=== PATIENT | male | born 1930 | race Caucasian/White ===

== ENCOUNTER → 2020-07-17 | Outpatient (CLI) | payer MEDICARE, OTHER ==
[~2020-07-17] MED LIST: AMBIEN CR 12.12.5 MG PO; CARDIZEM CD180 MG PO; COUMADIN 5MG5 MG/TAB PO; K-DUR20 MEQ PO; LASIX 20MG TABL20 MG PO; LIPITOR20 MG PO; NORVASC 10MG10 MG PO; OMNICEF 300MG300 MG PO; PRINZIDE 12.5 M1 TAB PO; TYLENOL 325MG325 MG PO
== END ==
LOC: COL.VAS 07:43
DX: M79.89 Other specified soft tissue disorders (principal)

== ENCOUNTER → 2020-07-23 | Outpatient (CLI) | payer MEDICARE, OTHER | LOC: COL.RAD 07-19 11:00 | DX: I10 Essential (primary) hypertension (principal); M79.89 Other specified soft tissue disorders; R16.1 Splenomegaly, not elsewhere classified; K57.90 Diverticulosis of intestine, part unspecified, without perforation or abscess without bleeding; N40.0 Benign prostatic hyperplasia without lower urinary tract symptoms; R22.32 Localized swelling, mass and lump, left upper limb; F51.01 Primary insomnia; J90 Pleural effusion, not elsewhere classified; Z86.39 Personal history of other endocrine, nutritional and metabolic disease | CPT/HCPCS: Q9967 ==

== ENCOUNTER 2020-08-03 12:55 | Inpatient (IN) | payer MEDICARE, OTHER ==
[~2020-08-03] VITALS: Ht 182.9 cm; Wt 83.5 kg
[~2020-08-03 12:55] MED LIST changes: -AMBIEN CR 12.12.5 MG PO; -K-DUR20 MEQ PO; -LASIX 20MG TABL20 MG PO; -NORVASC 10MG10 MG PO; -OMNICEF 300MG300 MG PO; -TYLENOL 325MG325 MG PO
[2020-08-03 13:14] LABS: BASO # 0.1 (0.0-0.2); BASO % 1.1 % (0.0-2.0); EOS # 0.7 (0.0-0.7); GRAN # 6.7 (1.4-6.5); GRAN % 57.7 % (42.2-75.2); HEMOGLOBIN 14.2 g/dl (13.5-18.0); LYMPH # 3.1 (1.2-3.4); LYMPH % 26.3 % (20.0-51.0); MEAN CELL VOLUME 85 fl (80.0-100.0); MEAN CORPUSCULAR HEMOGLOBIN 28 pg (27.0-31.0); MEAN CORPUSCULAR HGB CONC 33 g/dl (33.0-37.0); MEAN PLATELET VOLUME 8.3 fl (7.4-10.4); MONO % 8.2 % (1.7-9.3); PLATELET COUNT 187 K/mm3 (130-400); RED BLOOD COUNT 5.04 M/mm3 (4.20-5.60); REDCELL DISTRIBUTION WIDTH-CV 17.3 % (11.5-14.5)
[2020-08-03 13:24] LABS: ALBUMIN 3.8 gm/dL (3.5-5.0); BILIRUBIN,TOTAL 1.7 mg/dL (0.0-1.0); CREATININE, serum 1.04 (0.66-1.25); POTASSIUM 3.3 mmol/L (3.4-5.0); TOTAL PROTEIN 6.6 gm/dL (6.4-8.2)
[2020-08-03 13:35] LABS: TROPONIN-I 0.02 ng/mL (0.000-0.035)
[2020-08-03 13:47] LABS: INR 1.1 (0.8-3.0); PROTHROMBIN TIME 12.5 SECONDS (9.7-12.8)
[2020-08-03 15:31] LABS: ARTERIAL BLD GAS O2 SATURATION 91.5 % (92-100); ARTERIAL BLD GAS TCO2 CT 20.6; ARTERIAL BLOOD GAS BASE EXCESS -2.9 (-2-2); ARTERIAL BLOOD GAS HCO3 19.7 meq/L (22-26); ARTERIAL BLOOD GAS PCO2 28.7 mmHg (35-45); ARTERIAL BLOOD GAS PO2 58.8 mmHg (80-100); ARTERIAL BLOOD GAS pH 7.46 (7.35-7.45)
[2020-08-03] MEDS ORDERED: NORVASC 10MG10 MG PO (16:48)
[2020-08-03] MEDS ORDERED: AMBIEN CR 12.12.5 MG PO (16:48)
[2020-08-03] MEDS ORDERED: LASIX 20MG TABL20 MG PO (16:48)
[2020-08-03] MEDS ORDERED: K-DUR20 MEQ PO (16:48)
--- NOTE | 2020-08-03 18:40 | NUR ---
Pt arrived to medical unit room 355 from ED at 1810. Accompanied by son. Pt very hard of hearing w/hearing aid to right ear, most of history obtained from pt's son. Admission assessment completed and med rec updated. Oriented pt to room. Denies pain, does report increased SOA after moving from stretcher to bed. Sats remain stable in mid 90s on 2 lpm NC. Denies needs. Call light in reach and bed alarm on.
--- NOTE | 2020-08-03 20:00 | NUR ---
Notified by tele of a six beat run of SVT with return to SR. VS stable-asymptomatic. Notified JESI Ramos-new orders received for EKG. Notified RT.
[2020-08-03 20:07] VITALS: BP 137/68; PULSE 85; TEMP 97.9
--- NOTE | 2020-08-03 21:49 | NUR ---
PATIENT STATED THAT HE DOES NOT USE A PAP DEVICE ANYMORE. HE DOES NOT WANT THE PAP DEVICE TO BE SET UP.
[2020-08-03 23:32] VITALS: BP 150/71; PULSE 77; TEMP 97.5
--- NOTE | 2020-08-04 01:31 | NUR ---
JESI Ramos notified of potassium level of 3.3. New orders received and initiated.
[2020-08-04 04:25] VITALS: BP 150/69; PULSE 75; TEMP 97.8
--- NOTE | 2020-08-04 05:30 | NUR ---
Pt rested off and on this shift. Has voided well this shift. Denied pain/nausea/shortness of breath. VS stable. Denies needs. Call light in reach. Will monitor.
[2020-08-04 07:14] LABS: BASO # 0.1 (0.0-0.2); BASO % 1.1 % (0.0-2.0); EOS # 0.7 (0.0-0.7); GRAN # 4.9 (1.4-6.5); GRAN % 60.1 % (42.2-75.2); HEMATOCRIT 40.8 % (42.0-52.0); HEMOGLOBIN 13.3 g/dl (13.5-18.0); LYMPH # 1.6 (1.2-3.4); MEAN CELL VOLUME 86 fl (80.0-100.0); MEAN CORPUSCULAR HEMOGLOBIN 28 pg (27.0-31.0); MEAN CORPUSCULAR HGB CONC 33 g/dl (33.0-37.0); MEAN PLATELET VOLUME 8.7 fl (7.4-10.4); MONO # 0.8 (0.1-0.6); MONO % 10.1 % (1.7-9.3); PLATELET COUNT 144 K/mm3 (130-400); RED BLOOD COUNT 4.72 M/mm3 (4.20-5.60); REDCELL DISTRIBUTION WIDTH-CV 17.1 % (11.5-14.5)
[2020-08-04 07:28] LABS: CALCIUM 8.5 mg/dL (8.4-10.2); CREATININE, serum 0.9 (0.66-1.25); POTASSIUM 3.1 mmol/L (3.4-5.0)
--- NOTE | 2020-08-04 07:40 | NUR ---
Shift assessment complete. Pt still reports occasional SOA w/ exertion. Sats mid 90s on 2 lpm NC. Lungs CTA. Heart RRR. A&Ox4. Denies pain or other needs. Call light in reach.
[2020-08-04 08:00] VITALS: BP 164/89; PULSE 93; TEMP 98.6
[2020-08-04 12:00] VITALS: BP 136/62; PULSE 115; TEMP 98
--- NOTE | 2020-08-04 15:28 | NUR ---
Maintenance Service Technician met with patient to discuss discharge planning. Patient states that he lives in [place]. Patient is unable to hear SW, despite SW raising her voice and standing close to patient. SW asked patient if she could call his son, Manuel (ph#[phone]) and patient nodded his head. SW contacted Manuel to complete intake. Patient lives in [place] and sees Dr. Schmidt for primary care. Patient obtains medications from [facility] with no difficulties. Manuel advised patient recently obtained a cane and walker due to increased weakness recently. Manuel advised patient is normally independent with ADLS however they have been exploring assisted living options. Manuel is interested in patient completing DPOA-HC while he is here. SW will continue to follow on this. SW reviewed PT recommendation for SNF vs Home Health. Manuel feels at this time, patient should not return home and would benefit from rehab. SW reviewed local SNF options and Manuel's preferences are 1) [facility] in [place] and 2) [facility]. SW faxed referrals to both facilities. Discharge Plan: Awaiting screens from [facility] and [facility].
--- NOTE | 2020-08-04 15:44 | NUR ---
Report given to Libby DOBBINS who will resume care at this time.
[2020-08-04 17:04] VITALS: BP 122/65; PULSE 106; TEMP 98.5
--- NOTE | 2020-08-04 17:57 | NUR ---
Report recieved from SHILPI Ricks. Patient repositioned, IV antibiotics started. patient denies any pain, discomfort, or further needs at this time. White board placed in room to help with communication. Will continue to monitor. Call light within reach. Fall precautions in place.
[2020-08-04 19:11] VITALS: BP 118/63; PULSE 90; TEMP 97.5
--- NOTE | 2020-08-04 19:40 | NUR ---
Report received, assumed care for substation operator. Assessment complete. A&Ox3-very hard of hearing even with hearing aids in. Denies pain/nausea/shortness of breath. VS remain stable. O2A@2L/NC. States he feels exhausted and would like his HS meds now to include Ambien. Given per request. INT to right AC flushes without difficulty. External male cath in place-clear yellow urine. Denies any other needs. Call light in reach/bed alarm on. Will monitor.
[2020-08-04 23:17] VITALS: BP 130/76; PULSE 74; TEMP 97.8
--- NOTE | 2020-08-05 00:30 | NUR ---
Resting eyes closed. NO s/s of pain/discomfort noted. External male cath with clear yellow urine. Will continue to monitor.
[2020-08-05 03:14] VITALS: BP 129/63; PULSE 74; TEMP 97.4
--- NOTE | 2020-08-05 04:22 | NUR ---
Rested better this shift boss compared to last. Slept better with ambien dose. Is very hard of hearing-yells out and does not use call light but is A&Ox3. Tele showing SR with occasional PVC/PAC. Right AC INT flushes without difficulty. Denies current needs. Call light in reach/bed alarm on. Will monitor.
[2020-08-05 06:31] LABS: BASO # 0.1 (0.0-0.2); BASO % 1.1 % (0.0-2.0); EOS # 0.9 (0.0-0.7); EOS % 10.8 % (0-4.0); GRAN # 4.8 (1.4-6.5); GRAN % 59.2 % (42.2-75.2); HEMOGLOBIN 13.5 g/dl (13.5-18.0); LYMPH # 1.4 (1.2-3.4); LYMPH % 17.3 % (20.0-51.0); MEAN CELL VOLUME 87 fl (80.0-100.0); MEAN CORPUSCULAR HEMOGLOBIN 29 pg (27.0-31.0); MEAN CORPUSCULAR HGB CONC 33 g/dl (33.0-37.0); MEAN PLATELET VOLUME 9.2 fl (7.4-10.4); MONO # 0.9 (0.1-0.6); MONO % 11.1 % (1.7-9.3); PLATELET COUNT 144 K/mm3 (130-400); RED BLOOD COUNT 4.74 M/mm3 (4.20-5.60); REDCELL DISTRIBUTION WIDTH-CV 17.1 % (11.5-14.5)
[2020-08-05 06:39] LABS: CALCIUM 8.1 mg/dL (8.4-10.2); CREATININE, serum 0.92 (0.66-1.25); POTASSIUM 3.3 mmol/L (3.4-5.0)
--- NOTE | 2020-08-05 07:06 | NUR ---
Patient awake in bed at this time. C/O a sore tailbone. Patient repositioned, stated that this helped. Sacral area intact. Patient denied any further pain, discomfort, or needs at this time. Will continue to monitor. Call light in reach. Fall precautions in place.
[2020-08-05 07:08] VITALS: BP 145/78; PULSE 74; TEMP 98.1
--- NOTE | 2020-08-05 10:37 | NUR ---
Scheduled meds given. Assessments performed. VSS. Patient very hard of hearing, whiteboard used for communication. Patient denies any pain, discomfort, or futher needs at this time. Will continue to monitor. Call light within reach. Fall precautions in place. Son at the bedside.
[2020-08-05 11:49] VITALS: BP 108/65; PULSE 99; TEMP 97.6
--- NOTE | 2020-08-05 12:28 | NUR ---
Patient resting in bed at this time. Son, Ed, at the bedside. SCDS and air mattress in use. Patient denies any pain, discomfort, or further needs at this time. Will continue to monitor. Call light in reach. Fall precautions in place.
[2020-08-05 16:21] VITALS: BP 122/61; PULSE 89; TEMP 98.4
--- NOTE | 2020-08-05 17:39 | NUR ---
Patient had an uneventful day. Thora, lymph node biopsy, and echo scheduled for tomorrow. Air mattress placed. Scheduled meds given. Patient denies any pain discomfort, or further needs at this time. VSS. Will continue to monitor. Call light in reach, fall precautions in place.
[2020-08-05 19:05] VITALS: BP 120/58; PULSE 87; TEMP 98.5
--- NOTE | 2020-08-05 20:00 | NUR ---
PT TAKES HS MEDS INCLUDING AMBIEN FOR SLEEP. PT IS VERY [place]. HAS EXTERNAL CATHETER ON, REPLACED BY PCT. URINE IS YELLOW. HAS EDEMATOUS LEFT ARM FROM HAND INTO AXILLA, BRUISING INTO AXILLA. HAS SL TO RIGHT AC, FLUSHES WELL. DOES NOT LIKE SCDS, REMOVED AT THIS TIME. HAS BRUISING TO LEFT KNEE AND RIGHT THIGH AND KNEE FROM FALL AT HOME. ORIENTED TO SELF AND PLACE.
[2020-08-05 23:01] VITALS: BP 130/63; PULSE 82; TEMP 98.6
[2020-08-06] VITALS (10 sets, daily range): BP systolic 92–131; BP diastolic 49–69; PULSE 84–110; TEMP 97.3–98.7
--- NOTE | 2020-08-06 05:23 | NUR ---
HAS BEEN RESTING WELL. EXTERNAL CATH DRAINING WELL. O2 ON AT 2L/NC.
[2020-08-06 06:43] LABS: BASO # 0.1 (0.0-0.2); BASO % 0.9 % (0.0-2.0); EOS # 0.7 (0.0-0.7); EOS % 8.6 % (0-4.0); GRAN # 4.8 (1.4-6.5); HEMATOCRIT 41.3 % (42.0-52.0); HEMOGLOBIN 13.6 g/dl (13.5-18.0); LYMPH # 1.4 (1.2-3.4); LYMPH % 17.2 % (20.0-51.0); MEAN CELL VOLUME 87 fl (80.0-100.0); MEAN CORPUSCULAR HEMOGLOBIN 29 pg (27.0-31.0); MEAN CORPUSCULAR HGB CONC 33 g/dl (33.0-37.0); MEAN PLATELET VOLUME 8.7 fl (7.4-10.4); MONO # 0.9 (0.1-0.6); MONO % 11.7 % (1.7-9.3); PLATELET COUNT 131 K/mm3 (130-400); RED BLOOD COUNT 4.77 M/mm3 (4.20-5.60); REDCELL DISTRIBUTION WIDTH-CV 17.2 % (11.5-14.5)
[2020-08-06 06:59] LABS: CALCIUM 7.9 mg/dL (8.4-10.2); CREATININE, serum 0.91 (0.66-1.25); MAGNESIUM 1.9 mg/dL (1.6-2.3); POTASSIUM 3.5 mmol/L (3.4-5.0)
--- NOTE | 2020-08-06 08:00 | NUR ---
Shift assessment complete. White board being used to communicate w/pt due to difficulty hearing. A&Ox4. Heart RRR. Upper lobes clear w/coarse lung sounds to bilateral bases. Remains on 2 lpm O2 NC but denies SOA. Left upper extremity w/2+ edema and swollen hard purple area to left axilla. Currently NPO for lymph node biopsy and bilateral thoracentesis this morning. Denies needs. Continuing to monitor.
--- NOTE | 2020-08-06 09:25 | NUR ---
Judy with [facility] reports they can accept the patient for post acute rehab.
[2020-08-06 09:55] LABS: INR 1.2 (0.8-3.0); PROTHROMBIN TIME 13.4 SECONDS (9.7-12.8)
--- NOTE | 2020-08-06 10:10 | NUR ---
Pt off unit for lymph node biopsy and thoracentesis at this time.
--- NOTE | 2020-08-06 12:25 | NUR ---
Pt back in room 355 at this time. Post op vitals started.
[2020-08-06 12:29] LABS: PLEURAL FLUID APPEARANCE CLEAR; PLEURAL FLUID COLOR YELLOW; PLEURAL FLUID RBC 1000 /mm3 (0-0); PLEURAL FLUID WBC 421 /mm3
[2020-08-06 12:51] LABS: TOTAL PROTEIN,PLEURAL FLUID 3.3 gm/dL
--- NOTE | 2020-08-06 20:00 | NUR ---
Report received, assumed care for night filler. Assessment complete. VS stable. A&Ox3-very hard of hearing. Denies pain/nausea/shortness of breath. O2@2L/NC. Left upper extremity with +2 edema-elevated on pillows. Lung sounds coarse upper lobes-diminished bases. Tele showing sinus Tach. External male cath with clear yellow urine draining without issues. Requesting ambien to be given now. Denies any other questions/concerns. Call light in reach/bed alarm on. Will monitor.
[2020-08-07 06:03] VITALS: BP 129/64; PULSE 107; TEMP 97.9
[2020-08-07 07:31] LABS: HEMATOCRIT 42.7 % (42.0-52.0); HEMOGLOBIN 13.8 g/dl (13.5-18.0); MEAN CELL VOLUME 87 fl (80.0-100.0); MEAN CORPUSCULAR HEMOGLOBIN 28 pg (27.0-31.0); MEAN CORPUSCULAR HGB CONC 32 g/dl (33.0-37.0); MEAN PLATELET VOLUME 9.3 fl (7.4-10.4); PLATELET COUNT 126 K/mm3 (130-400); RED BLOOD COUNT 4.91 M/mm3 (4.20-5.60); REDCELL DISTRIBUTION WIDTH-CV 17.3 % (11.5-14.5)
[2020-08-07 07:37] LABS: CALCIUM 7.9 mg/dL (8.4-10.2); CREATININE, serum 0.95 (0.66-1.25); POTASSIUM 3.7 mmol/L (3.4-5.0)
[2020-08-07 08:20] VITALS: BP 130/53; PULSE 106; TEMP 97.9
--- NOTE | 2020-08-07 09:23 | NUR ---
Shift assessment complete. Pt sitting up in bed, ate most of breakfast. Denies pain or SOA this morning. Remains on 2 lpm O2 NC. Lungs CTA. Heart RRR. A&Ox4. White board utilized for communication due to hard of hearing bilaterally. Call light in reach.
[2020-08-07 12:09] VITALS: BP 93/54; PULSE 101; TEMP 98.4
--- NOTE | 2020-08-07 15:50 | NUR ---
(late entry 08/06) Caddie met with the patient and the patient's son, Ed to complete DPOA-HC form. Form completed and witnessed by this SW and the patient's nurse. The patient designated his son, Ed and his [id number], Comfort. A copy placed in the chart and original and copies provided to the patient.
--- NOTE | 2020-08-07 15:58 | NUR ---
home economics extension worker faxed updates to Judy at [facility].
[2020-08-07 16:57] VITALS: BP 113/66; PULSE 99; TEMP 98.4
[2020-08-07 19:48] VITALS: BP 124/61; PULSE 91; TEMP 98.9
--- NOTE | 2020-08-07 20:00 | NUR ---
Report received, assumed care for model builder display. Assessment complete. A&Ox3-very hard of hearing-using white board for communication. Denies pain/nausea/shortness of breath. VS stable. Edema to left upper extremity +2. Elevated on pillow. Plan of care discussed for this shift to include HS meds/repositioning/external cath/calling for questions/concerns. Verbalizes understanding/denies needs. Requesting HS slepeing pill-given at this time. Call light in reach/bed alarm on. Will monitor.
[2020-08-07 23:27] VITALS: BP 110/60; PULSE 107; TEMP 98.4
--- NOTE | 2020-08-08 02:19 | NUR ---
Yelled to nurses station stating his neck was hurting-rating pain 5/10 on pain scale-described as throbbing. JESI Ramos notified and new orders received. Tylenol given per order.
[2020-08-08 03:10] VITALS: BP 104/53; PULSE 86; TEMP 98.5
--- NOTE | 2020-08-08 06:31 | NUR ---
Rested off and on this shift. Requested a sleeping pill often-every couple hours-did receive at HS. Tylenol x1 for back pain. Denied nausea/shortness of breath. O2@2L/NC. VS remained stable. Denies current needs. Call light in reach. Will monitor.
[2020-08-08 07:27] LABS: CALCIUM 7.9 mg/dL (8.4-10.2); CREATININE, serum 0.95 (0.66-1.25); MAGNESIUM 1.9 mg/dL (1.6-2.3); POTASSIUM 3.6 mmol/L (3.4-5.0)
[2020-08-08 08:41] VITALS: BP 94/54; PULSE 101; TEMP 97.6
[2020-08-08 09:19] LABS: BASO # 0.1 (0.0-0.2); EOS # 0.8 (0.0-0.7); EOS % 9.2 % (0-4.0); GRAN # 4.9 (1.4-6.5); GRAN % 58.8 % (42.2-75.2); HEMATOCRIT 40.7 % (42.0-52.0); HEMOGLOBIN 13.2 g/dl (13.5-18.0); LYMPH # 1.5 (1.2-3.4); LYMPH % 17.6 % (20.0-51.0); MEAN CELL VOLUME 87 fl (80.0-100.0); MEAN CORPUSCULAR HEMOGLOBIN 28 pg (27.0-31.0); MEAN CORPUSCULAR HGB CONC 32 g/dl (33.0-37.0); MEAN PLATELET VOLUME 9.3 fl (7.4-10.4); MONO # 1.1 (0.1-0.6); MONO % 12.7 % (1.7-9.3); PLATELET COUNT 129 K/mm3 (130-400); RED BLOOD COUNT 4.66 M/mm3 (4.20-5.60); REDCELL DISTRIBUTION WIDTH-CV 17.5 % (11.5-14.5)
[2020-08-08] MEDS ORDERED: TYLENOL 325MG325 MG PO (09:45)
[2020-08-08] MEDS ORDERED: OMNICEF 300MG300 MG PO (09:45)
--- NOTE | 2020-08-08 11:24 | NUR ---
Assessment completed, alert/oriented to person and place, hard of hearing and is forgetful, denies pain, no resp.difficulty noted at rest, lungs CTA/ diminished, LUE swollen/ non-pitting, distal pulses are palpable, heart RRR, pathology reports pending, plans for discharge to [facility] nursing facility, rapid COVID pending, son present and plan of care discussed
[2020-08-08 11:26] VITALS: BP 108/56; PULSE 85; TEMP 97.8
--- NOTE | 2020-08-08 11:43 | NUR ---
The patient to tentatively discharge today, 08/08 to [facility] for post acute rehab. The patient to be transported at 1300. All were in agreeance. NISA faxed Covid-19 results, discharge orders, and discharge summary to Judy at [facility]. NISA contacted the patient's son, Ed to present the IM form. Ed verbalized understanding a gave this SW permission to sign on his behalf. A copy was provided to the patient and the original was placed in the chart. There are no additional needs. *Discharge disposition: [facility] for post acute rehab.
[2020-08-08 14:15] VITALS: BP 108/56; PULSE 85; TEMP 97.8
--- NOTE | 2020-08-08 15:43 | NUR ---
Patient transferring to [facility] nursing facility, I have called and given nurse to nurse report, IV and tele removed, son notified of transfer time by social work, patient being transferred by [facility] personel
== END 2020-08-08 15:44 | DRG 264 ==
LOC: COL.ER 12:55 → MEDICAL 14:54
PROVIDERS: Emergency Medicine; Family Medicine; Internal Medicine Pulmonary Disease; Physician Assistant; Student in an Organized Health Care Education/Training Program; ADMIT Hospitalist
PROC: 0W9B3ZZ Drainage of Left Pleural Cavity, Percutaneous Approach (ICD-10-PCS; principal; 2020-08-06)
PROC: 07B63ZX Excision of Left Axillary Lymphatic, Percutaneous Approach, Diagnostic (ICD-10-PCS; 2020-08-06)
DX: I11.0 Hypertensive heart disease with heart failure (principal); J18.9 Pneumonia, unspecified organism; J96.01 Acute respiratory failure with hypoxia; I50.31 Acute diastolic (congestive) heart failure; J90 Pleural effusion, not elsewhere classified; I47.1 Supraventricular tachycardia; E87.6 Hypokalemia; R07.89 Other chest pain; G47.33 Obstructive sleep apnea (adult) (pediatric); I48.91 Unspecified atrial fibrillation; N40.0 Benign prostatic hyperplasia without lower urinary tract symptoms; R16.1 Splenomegaly, not elsewhere classified; G56.92 Unspecified mononeuropathy of left upper limb; R53.81 Other malaise; Z87.891 Personal history of nicotine dependence; Z79.01 Long term (current) use of anticoagulants
CPT/HCPCS: 99223-AI; 99232-AI; 99239; G0378; J0456; J0696; J1650; J1940; J7050